=== PATIENT | male | born 2000 | race Caucasian/White ===

== ENCOUNTER 2021-01-07 16:23 | Emergency (ER) | payer OTHER, SELFPAY ==
[2021-01-07 16:42] VITALS: BP 119/68; PULSE 77; RESP 18; TEMP 36.9; O2SAT 96; BMI 19.3
--- NOTE | 2021-01-07 18:25 | CTR_ITS ---
PROCEDURE INFORMATION: Exam: CT Abdomen And Pelvis With Contrast Exam date and time: 01/07/2021 6:25 PM Age: 20 years old Clinical indication: Abdominal pain; Localized; Right lower quadrant (rlq); Additional info: R abdominal pain TECHNIQUE: Imaging protocol: Computed tomography of the abdomen and pelvis with contrast. Radiation optimization: All CT scans at this facility use at least one of these dose optimization techniques: automated exposure control; mA and/or kV adjustment per patient size (includes targeted exams where dose is matched to clinical indication); or iterative reconstruction. Contrast material: OMNI 300; Contrast volume: 95 ml; Contrast route: INTRAVENOUS (IV); COMPARISON: No relevant prior studies available. RADIATION DOSE METRICS: Total DLP (mGy-cm): 695.26 FINDINGS: Liver: Normal. No mass. Gallbladder and bile ducts: Normal. No calcified stones. No ductal dilation. Pancreas: Normal. No ductal dilation. Spleen: Normal. No splenomegaly. Adrenal glands: Normal. No mass. Kidneys and ureters: Normal. No hydronephrosis. Stomach and bowel: Unremarkable. No obstruction. No mucosal thickening. Appendix: Appendix abnormally thick measures up to 9 mm transverse diameter. Negative for periappendiceal inflammatory change. Intraperitoneal space: No intraperitoneal fluid collection. No free intraperitoneal air. Vasculature: Unremarkable. No abdominal aortic aneurysm. Lymph nodes: Unremarkable. No enlarged lymph nodes. Urinary bladder: Unremarkable as visualized. Reproductive: Unremarkable as visualized. Bones/joints: Unremarkable. No acute fracture. Soft tissues: Unremarkable. CT/CT abdomen pelvis w con* [id number] IMPRESSION: Mild abnormal thickening of the appendix. Early features of acute appendicitis cannot be excluded. Radiation Dose CTDIVOL = (mGy): DLP = 695.26 (mGy-cm)
[2021-01-07 21:19] LABS: Basophils % 0.3 %; Eosinophils # 0.1 10^3/uL (0.0-0.8); Eosinophils % 1.7 %; Hematocrit 38.3 % (42.0-52.0); Hemoglobin 12.9 g/dL (11.7-16.6); Lymphocytes # 3.5 10^3/uL (1.5-6.5); Mean Corpuscular HGB Conc 33.7 g/dL (30.0-36.0); Mean Corpuscular Hemoglobin 28.9 pg (28.0-34.0); Mean Corpuscular Volume 85.9 fl (80-94); Mean Platelet Volume 10.3 fL (7.4-10.4); Monocytes # 0.5 10^3/uL (0.2-0.9); Monocytes % 5.7 %; Neutrophils # 3.71 10^3/uL (1.8-8.0); Neutrophils % 47.2 %; Nucleated Red Blood Cells % 0 %; Platelet Count 283 10^3/cmm (130-400); Red Blood Count 4.46 10^6/uL (4.1-5.3); Red Cell Distribution Width 12.4 % (12.1-15.1); White Blood Count 7.9 10^3/uL (4.5-13.0)
[2021-01-07 21:40] LABS: Alanine Aminotransferase 6 U/L (0-41); Albumin Level 4.2 g/dL (3.5-5.2); Alkaline Phosphatase 97 IU/L (40-130); Aspartate Amino Transferase 16 U/L (0-40); Blood Urea Nitrogen 13 mg/dL (6-20); Calcium 8.8 mg/dL (8.5-10.5); Carbon Dioxide 23 mmol/L (22-29); Chloride 103 mmol/L (98-107); Globulin 2.7 g/dL (1.3-4.6); Glomerular Filtration Rate 173.6 mL/min (90-130); Glucose 95 mg/dL (65-115); Osmolality Calculated 286 mOsm/kg (285-295); Sodium 138 mmol/L (136-145); Total Bilirubin 0.7 mg/dL (0.15-1.2); Total Protein 6.9 g/dL (6.6-8.7)
[2021-01-07 22:27] VITALS: BP 105/59; PULSE 59; RESP 17; O2SAT 99
[2021-01-07 22:36] LABS: Add Urine Microscopic? NO; Charge for UA Resulting for Rev
[2021-01-07 22:41] LABS: Bilirubin Urine Neg (Negative); Blood Urine Neg (Negative); Glucose Urine UA Norm (Normal); Ketones Urine Negative (Negative); Leukocyte Esterase Urine Negative (Negative); Nitrate Urine Negative (Negative); Protein Urine Neg (Negative); Urine Appearance Clear (CLEAR); Urine Color Yellow (Yellow); Urobilinogen Urine Norm (Negative); pH Urine 5 (5-7)
[2021-01-07] MEDS: iohexol 300 mg/mL 100 mL Btl IV (22:50)
--- NOTE | 2021-01-07 23:30 | W.ED.ABDPA2 ---
HPI - Abdominal Pain General: Chief Complaint: Abdominal Pain Stated Complaint: Pain in L right ABD Time Seen by Provider: 01/07/21 22:30 Source: patient, family (mother) and RN notes reviewed Mode of arrival: ambulatory Limitations: no limitations History of Present Illness: MD elicited complaint: abdominal pain Pertinent past history: none Onset (ago): day(s) (3) Pain Consistency: constant Location: RLQ Severity: moderate Quality: sharp Radiation: none Migration to: no migration Exacerbating factors: nothing Relieving factors: nothing Associated Symptoms: Reports nausea; Denies anorexia, belching, bloating, change in bowel habits, change in stool character, chills, coffee ground emesis, constipation, GI cramping, diarrhea, dyspepsia, dysuria, excessive flatus, fever(s), heartburn, hematochezia, hematuria, hematemesis, fecal incontinence, loose stools, melena, poor appetite, syncope and vomiting Review of Systems General: Reports: 10 or more systems reviewed and unremarkable except in HPI and below Const: Denies: fever(s) or chills Card: Denies: syncope GI: Reports: nausea; Denies: vomiting, hematemesis, coffee ground emesis, heartburn, diarrhea, constipation, bloating, GI cramping, belching, excessive flatus, fecal incontinence, change in bowel habits, change in stool character, hematochezia or melena : Denies: dysuria or hematuria PFSH ED PFSH: Family History Grandfather Cancer prostate Denies family history of Diabetes CAD (coronary artery disease) Dementia Psychiatric illness Suicide Bleeding disorder Hypertension Stroke Social History Smoking and tobacco status: never smoked Second hand smoke exposure: No Alcohol intake: never Caregiver/support person: Yes Lives independently: No Household members: family service: No Current occupational status: unemployed History of recent travel: Yes Details: moved from [place] week ago Out of state: Yes Out of country: No Current gender identity: Male Special victor m needs: No Agree to transfusion: Yes Physical Exam Const: COMMON NORMALS: no acute distress, average body habitus, patient oriented x3, no limitations, healthy appearing, alert and well nourished HENMT: COMMON NORMALS: normocephalic, atraumatic and moist oral mucous membranes HEAD & SCALP: normocephalic and atraumatic Neck/C-Spine: COMMON NORMALS: no meningeal signs and no JVD Resp: COMMON NORMALS: normal respiratory effort, No retractions, No use of accessory muscles, clear to auscultation bilaterally and percussion normal AUSCULTATION: clear to auscultation bilaterally PERCUSSION: percussion normal Cardio: COMMON NORMALS: no JVD, regular rate, regular rhythm, S1 normal heart sound present, S2 normal heart sound present, No gallops present (Cardio), No clicks present (Cardio), No murmurs present (Cardio), No rub (Cardio) and Peripheral pulses 2+ throughout RATE: regular rate RHYTHM: regular rhythm HEART SOUNDS: S1 normal heart sound present and S2 normal heart sound present PERIPHERAL PULSES: Peripheral pulses 2+ throughout GI: COMMON NORMALS: Normal to inspection, nondistended, normoactive bowel sounds present, Soft to palpation, No hepatosplenomegaly present, no masses and no bruits PALPATION: Yes Soft to palpation, Yes Tenderness to palpation present (GI) Details: RLQ, No Guarding due to palpation present (GI), No Rigid due to palpation, Yes No hepatosplenomegaly present and No Rebound tenderness present Extremity: COMMON NORMALS: normal to inspection, full ROM, capillary refill normal, no calf tenderness and no pedal edema Neuro: COMMON NORMALS: patient oriented x3 SENSORIUM/ORIENTATION: Yes alert MENINGEAL SIGNS: Yes no meningeal signs Skin: COMMON NORMALS: no rashes or lesions noted, no wounds, turgor normal, no jaundice, no petechiae and no mottling GENERAL SKIN EXAM: no rashes or lesions noted and turgor normal Course Reevaluation(s): Reevaluation #1: Discussed his lab and imaging findings with the patient and his mother. Explained that his appendix is abnormally enlarged but no signs of inflammation noted. Since his white cell count is normal and he does not appear toxic or seriously ill I discussed management options with them. He could be observed at home and closely monitored for signs of worsening pain, fevers, or other symptoms that could suggest acute appendicitis or I can discuss with the surgeon to see if he would like to take him to the OR. Mother opted for discharge and monitoring at home. They will bring him back if there are any concerns. Time: 23:34 Vital Signs: Vital signs: Vital Signs Temperature 97.9 F 01/08/21 00:02 Pulse Rate 80 01/08/21 00:02 Respiratory Rate 18 01/08/21 00:02 Blood Pressure 119/77 01/08/21 00:02 Pulse Oximetry 99 01/08/21 00:02 MDM - Abdominal Pain MDM Narrative: Medical decision making narrative: 20-year-old male who presents to the emergency department with right lower quadrant pain. Symptoms have been ongoing for about [address] scan of his abdomen and pelvis showed a thickened appendix but no signs of inflammatory changes around the appendix. After consultation with the mother and the patient the opted for monitoring the patient at home and will return if there are any signs of worsening symptoms. I think this is reasonable and they are strongly counseled to come back to the emergency department with any concerns. Medical Records: Attestation: I reviewed the patient's medical records. Lab Data: Attestation: I reviewed the patient's lab results. Labs: Lab Results 01/07/21 01/07/21 01/07/21 Range/Units 21:03 21:03 22:32 WBC 7.9 (4.5-13.0) 10^3/ uL RBC 4.46 (4.1-5.3) 10^6/u L Hgb 12.9 (11.7-16.6) g/dL Hct 38.3 L (42.0-52.0) % MCV 85.9 (80-94) fl MCH 28.9 (28.0-34.0) pg MCHC 33.7 (30.0-36.0) g/dL RDW 12.4 (12.1-15.1) % Plt Count 283 (130-400) 10^3/c mm MPV 10.3 (7.4-10.4) fL Neut % (Auto) 47.2 % Lymph % (Auto) 45.0 % Barnes % (Auto) 5.7 % Eos % (Auto) 1.7 % Baso % (Auto) 0.3 % Neut # (Auto) 3.71 (1.8-8.0) 10^3/u L Lymph # (Auto) 3.5 (1.5-6.5) 10^3/u L Barnes # (Auto) 0.5 (0.2-0.9) 10^3/u L Eos # (Auto) 0.1 (0.0-0.8) 10^3/u L Baso # (Auto) 0.0 (0.0-0.1) 10^3/u L Nucleated RBC % (a uto) 0 % Nucleated RBCs # 0.0 /100WBC Sodium 138 (136-145) mmol/L Potassium 4.0 (3.5-5.1) mmol/L Chloride 103 (98-107) mmol/L Carbon Dioxide 23 (22-29) mmol/L Anion Gap 16.0 (5-19) BUN 13 (6-20) mg/dL Creatinine 0.6 L (0.7-1.2) mg/dL GFR Calculation 173.6 H (90-130) mL/min Glucose 95 (65-115) mg/dL Calculated Osmolal ity 286 (285-295) mOsm/k g Calcium 8.8 (8.5-10.5) mg/dL Total Bilirubin 0.7 (0.15-1.2) mg/dL AST 16 (0-40) U/L ALT 6 (0-41) U/L Alkaline Phosphata se 97 (40-130) IU/L Total Protein 6.9 (6.6-8.7) g/dL Albumin 4.2 (3.5-5.2) g/dL Globulin 2.7 (1.3-4.6) g/dL Urine Color Yellow (Yellow) Urine Appearance Clear (CLEAR) Urine pH 5 (5-7) Ur Specific Gravit y 1.020 (1.005-1.030) Urine Protein Neg (Negative) Urine Glucose (UA) Norm (Normal) Urine Ketones Negative (Negative) Urine Blood Neg (Negative) Urine Nitrate Negative (Negative) Urine Bilirubin Neg (Negative) Urine Urobilinogen Norm (Negative) mg/dL Ur Leukocyte Stefani ase Negative (Negative) Imaging Data ^: CT Abd/Pel: Attestation: I personally reviewed and interpreted this imaging study as follows: Radiologist's impression: [address], [place] [address]ER Scan ReportSigned with Addenda Patient: Fabian Mckinnon #: [id number]: 2000Acct#:[id number]/Sex: 20 / MADM Date: 01/07/21Loc: ERRoom/Bed:Attending Dr: Ordering Provider/Ordering MD: Jazzy Sarah Date of Service: 01/07/21 Procedure(s): CT abdomen pelvis w con* [id number] Accession Number(s): [id number] Report Number: [id number]/CT abdomen pelvis w con* [id number] THIS REPORT CONTAINS FINDINGS THAT MAY BE CRITICAL TO PATIENT CARE. The findings were verbally communicated via telephone conference with Dr. Thomas at 11:44 PM CDT on 01/07/2021. The findings were acknowledged and understood. Radiation Dose CTDIVOL = (mGy): DLP = 695.26 (mGy-cm) Addendum Dictated By: Christiana Fleming Signed By: Feliciano Fleming Date/Time:01/07/21 2347Addendum Cosigned By: PROCEDURE INFORMATION: Exam: CT Abdomen And Pelvis With Contrast Exam date and time: 01/07/2021 6:25 PM Age: 20 years old Clinical indication: Abdominal pain; Localized; Right lower quadrant (rlq); Additional info: R abdominal pain TECHNIQUE: Imaging protocol: Computed tomography of the abdomen and pelvis with contrast. Radiation optimization: All CT scans at this facility use at least one of these dose optimization techniques: automated exposure control; mA and/or kV adjustment per patient size (includes targeted exams where dose is matched to clinical indication); or iterative reconstruction. Contrast material: OMNI 300; Contrast volume: 95 ml; Contrast route: INTRAVENOUS (IV); COMPARISON: No relevant prior studies available. RADIATION DOSE METRICS: Total DLP (mGy-cm): 695.26 FINDINGS: Liver: Normal. No mass. Gallbladder and bile ducts: Normal. No calcified stones. No ductal dilation. Pancreas: Normal. No ductal dilation. Spleen: Normal. No splenomegaly. Adrenal glands: Normal. No mass. Kidneys and ureters: Normal. No hydronephrosis. Stomach and bowel: Unremarkable. No obstruction. No mucosal thickening. Appendix: Appendix abnormally thick measures up to 9 mm transverse diameter. Negative for periappendiceal inflammatory change. Intraperitoneal space: No intraperitoneal fluid collection. No free intraperitoneal air. Vasculature: Unremarkable. No abdominal aortic aneurysm. Lymph nodes: Unremarkable. No enlarged lymph nodes. Urinary bladder: Unremarkable as visualized. Reproductive: Unremarkable as visualized. Bones/joints: Unremarkable. No acute fracture. Soft tissues: Unremarkable. CT/CT abdomen pelvis w con* [id number] IMPRESSION: Mild abnormal thickening of the appendix. Early features of acute appendicitis cannot be excluded. Radiation Dose CTDIVOL = (mGy): DLP = 695.26 (mGy-cm) Dictated By:Feliciano Fleming By:Feliciano Fleming Date/Time:01/07/212318DD/ 16 Discharge Plan Discharge Patient Disposition: Home Clinical Impression: Abdominal pain, acute, right lower quadrant Condition: Stable Prescriptions: No Action No Known Home Medications RF: 0 Discharge Orders: Discharge ED (Routine); Ordered 01/07/21 Ordered By: Ester Thomas Referrals: Priscilla Lang MD [Primary Care Provider] - 1-3 days Discharge Diet: Usual diet Discharge Activity: Increase activity as tolerated Patient Instructions: Abdominal Pain (ED) Activity Restrictions/Additional Instructions: Return for any new or worsening symptoms. Follow-up with your primary care provider within 3 days. If your pain gets any worse, or you run a fever, or have other concerns please return to be evaluated as your appendix might be inflamed at that time. 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
[2021-01-08 00:02] VITALS: BP 119/77; PULSE 80; RESP 18; TEMP 36.6; O2SAT 99
== END 2021-01-08 00:02 | disposition home or self-care (01) ==
PROVIDERS: Emergency Medicine; Physician Assistant; Emergency Provider Family Medicine; PCP Family Medicine
DX: R10.31 Right lower quadrant pain (principal); E11.9 Type 2 diabetes mellitus without complications; F03.90 Unspecified dementia, unspecified severity, without behavioral disturbance, psychotic disturbance, mood disturbance, and anxiety; I10 Essential (primary) hypertension; I25.10 Atherosclerotic heart disease of native coronary artery without angina pectoris; Z86.73 Personal history of transient ischemic attack (TIA), and cerebral infarction without residual deficits
CPT/HCPCS: 36415; 74177; 80053; 81003; 85025; 99283; Q9967

== ENCOUNTER 2024-02-08 10:03 | Emergency (ER) | payer BC, SELFPAY ==
[2024-02-08 10:16] VITALS: BP 126/74; PULSE 55; RESP 16; TEMP 36.4; O2SAT 98; BMI 21.6
--- NOTE | 2024-02-08 10:48 | W.ED.EYEPROB ---
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 He is not having any visual changes. Foreign body sensation present. No drainage. Last tetanus was approximately 7 years or so ago. chief complaint: foreign body Onset (ago): day(s) (yesterday) Onset description: sudden Duration: constant Location: left eye Eye Symptoms: foreign body sensation Place: home Mechanism: occurred while hammering/grinding Severity: mild Associated symptoms: Reports no associated symptoms Treatments Prior to Arrival: irrigated eye Related Data Previous Rx's Medication Instructions Recorded erythromycin 5 mg/gram (0.5 %) eye 1 applic ophthalmic (eye) Q4H 7 02/08/24 ointment (3.5 gram tube) days #1 g Allergies Allergy/AdvReac Type Severity Reaction Status Date / Time No Known Allergies Allergy Verified 02/08/24 10:21 Review of Systems Eyes: Reports: eye discomfort (fb sensation) and eye redness; Denies: change in vision, blurry vision, floaters or seeing flashes PFSH ED PFSH: Family History Grandfather Cancer prostate Denies family history of Diabetes CAD (coronary artery disease) Dementia Psychiatric illness Suicide Bleeding disorder Hypertension Stroke Social History Smoking and tobacco/nicotine status: never used tobacco/nicotine Second hand smoke exposure: No Alcohol intake: current Alcohol intake frequency: few times a month Alcohol type: beer Substance/Drug Use: never Caregiver/support person: Yes Lives independently: No Household members: family Marital status: Single service: No Current occupational status: employed and unemployed Current gender identity: Male Special victor m needs: No Agree to transfusion: Yes Physical Exam Const: COMMON NORMALS: no acute distress, no limitations, healthy appearing, alert and well nourished Eye: COMMON NORMALS: Equal, round and reactive pupils present and EOMs intact bilaterally GENERAL EYE: normal light reflex VISUAL ACUITY: Yes acuity normal ALIGNMENT: Yes alignment normal PERIORBITAL: periorbital findings normal EYELID: eyelids normal CONJUNCTIVA: Yes conjunctival abnormal positive left (slight injection) SCLERA: sclerae normal CORNEA: Yes fluorescein used (metallic fb to 4 oclock position on L cornea) PUPIL: Yes Equal, round and reactive pupils present DIRECT OPHTHALMOSCOPY: Yes normal light reflex Neuro: SENSORIUM/ORIENTATION: Yes alert Procedures FB Removal Eye Location: eye (L) Topical anesthetic used: tetracaine Foreign body: metal Evidence of corneal penetration: No Technique: cotton tip swab Procedure performed under: direct visualization with magnification (no rust ring present) Post-procedure medication: ophthalmic antibiotic (RX given) Patient tolerated procedure: well Course Vital Signs: Vital signs: Vital Signs Temperature 97.5 F L 02/08/24 10:16 Pulse Rate 55 L 02/08/24 10:16 Respiratory Rate 16 02/08/24 10:16 Blood Pressure 126/74 02/08/24 10:16 Pulse Oximetry 98 02/08/24 10:16 Oxygen Delivery Me thod Room Air 02/08/24 10:16 MDM - Eye Problem Medical Decision Making Metallic foreign body removed with moist cotton swab without difficulty. No rust ring. Tetanus updated. Will place on erythromycin ointment. Return to ED precautions given. No radiology studies performed this visit Discharge Plan Discharge Patient Disposition: Home Clinical Impression: Acute foreign body of left cornea Qualifiers: Encounter type: initial encounter Qualified Code(s): T15.02XA - Foreign body in cornea, left eye, initial encounter Condition: Stable Prescriptions: New erythromycin 5 mg/gram (0.5 %) ointment 1 applic ophthalmic (eye) Q4H 7 Days Qty: 1 0RF Discharge Orders: Discharge ED (Routine); Ordered 02/08/24 Ordered By: Jazzy Sarah Patient Instructions: Eye Foreign Body (ED) Activity Restrictions/Additional Instructions: Fill your antibiotic ointment and start immediately using as directed. You need to seek medical reevaluation for worsening eye pain, visual loss, purulent draining from the eye, or any other concerns you may have. Coding Level of Care Code ED Special Education Resource Room Teacher for Danielle Head
[2024-02-08] MEDS: fluorescein 1 mg Strip EYE-LEFT (10:59)
[2024-02-08] MEDS: tetracaine 0.5% Op Soln 4 mL Btl 1 DROP EYE-LEFT (10:59)
[2024-02-08] MEDS: tetanus-dipt-pertussis 0.5 mL SDV IM (11:18)
[2024-02-08 11:29] VITALS: BP 124/61; PULSE 60; O2SAT 98
== END 2024-02-08 11:30 | disposition home or self-care (01) ==
PROVIDERS: Emergency Provider Physician Assistant
DX: T15.02XA Foreign body in cornea, left eye, initial encounter (principal); Z23 Encounter for immunization
CPT/HCPCS: 65220; 90471; 90715; 99283